=== PATIENT | female | born 1995 | race Caucasian/White ===

== ENCOUNTER 2018-02-11 12:01 | Day surgery (SDC) | payer MEDICAID ==
[~2018-02-11] VITALS: Ht 162.6 cm; Wt 62.6 kg
[~2018-02-11 12:01] MED LIST: ACHD5005 PO; AZIT-21 PO; BIRTH CONTROL PO; BUTA1CAP39 PO; CHOL4PAC19 PO; DCS100C PO; HYDR-3720 PO; IBP800T PO; LACTATED RINGERS 1,000 ML IV PRN; METR500T PO; MULT-241 PO; NAPR-243 PO; PEDI1TAB35 PO; PREN-115 PO; TRAM50TA2 PO; TRM50T PO
[2018-02-11 12:10] VITALS: BP 116/65
[2018-02-11] MEDS ORDERED: LACTATED RINGERS 1,000 ML IV PRN (12:24)
[2018-02-11] MEDS ORDERED: ONDANSETRON 4 MG/2 ML (SDV) Z0FRAN IV ONE (12:30)
[2018-02-11] MEDS ORDERED: SCOPOLAMINE 1.5 MG (TRANSDERM-SCOP) PATCH TOP ONE (12:30)
[2018-02-11] MEDS ORDERED: FAMOTIDINE 20MG/2ML IV (PEPCID) IV ONE (12:30)
[2018-02-11 12:41] LABS: BASOPHILS % (AUTO) 0 % (0-10); EOSINOPHILS # (AUTO) 0.1 10^3/uL (0.0-0.3); EOSINOPHILS % (AUTO) 1 % (0-10); HEMATOCRIT 38 % (35-52); HEMOGLOBIN 13.3 G/DL (11.5-16.0); LYMPHOCYTES # (AUTO) 1.7 X 10^3 (1.0-4.0); LYMPHOCYTES % (AUTO) 23 % (12-44); MEAN CORPUSCULAR HEMOGLOBIN 30 PG (25-34); MEAN CORPUSCULAR HGB CONC 36 G/DL (32-36); MEAN CORPUSCULAR VOLUME 85 FL (80-99); MEAN PLATELET VOLUME 10.1 FL (7.4-10.4); MONOCYTES # (AUTO) 0.7 X 10^3 (0.0-1.0); MONOCYTES % (AUTO) 9 % (0-12); NEUTROPHILS # (AUTO) 4.9 X 10^3 (1.8-7.8); NEUTROPHILS % (AUTO) 66 % (42-75); PLATELET COUNT 256 10^3/uL (130-400); RED BLOOD COUNT 4.39 10^6/uL (4.35-5.85); RED CELL DISTRIBUTION WIDTH 12.6 % (10.0-14.5); WHITE BLOOD COUNT 7.4 10^3/uL (4.3-11.0)
[2018-02-11] MEDS ORDERED: ceFAZolin 1 GM/NS 100 ML IVPB IV ONE ×2 (12:45)
[2018-02-11] MEDS ORDERED: LIDOCAINE PF 2% 5 ML (XYLOCAINE) VIAL ONE (13:19)
[2018-02-11] MEDS ORDERED: fentaNYL INJECTION 100 MCG/2 ML AMP ONE (13:19)
[2018-02-11] MEDS ORDERED: DEXAMETHASONE 10 MG/ML (DECADRON) 1 ML VIAL ONE (13:19)
[2018-02-11] MEDS ORDERED: proPOfol 200 MG/20 ML (DIPRIVAN) VIAL IV ONE (13:19)
[2018-02-11] MEDS ORDERED: SEVOFLURANE (ULTANE) 15 ML INHAL SOLN ONE ×2 (13:19→15:01)
[2018-02-11] MEDS ORDERED: ONDANSETRON 4 MG/2 ML (SDV) Z0FRAN ONE ×2 (13:19→15:26)
[2018-02-11] MEDS ORDERED: MIDAZOLAM 2 MG/2 ML (VERSED) VIAL ONE (13:19)
[2018-02-11] MEDS ORDERED: D5 LR IV SOLUTION 1,000 ML IV SCH (14:28)
--- NOTE | 2018-02-11 14:28 | Progress Note-Pre Operative ---
Pre-Operative Progress Note H&P Reviewed The H&P was reviewed, patient examined and no changes noted. Date Seen by Provider: Feb 11, 2018 Time Seen by Provider: 14:28 Date H&P Reviewed: Feb 11, 2018 Time H&P Reviewed: :28 Pre-Operative Diagnosis: MELISSA/incomplete AB/possible molar ANGIE BURROWS MD Feb 11, 2018 2:28 pm
[2018-02-11] MEDS ORDERED: KETOROLAC 30 MG/ML VIAL IVP ONE (14:30)
[2018-02-11] MEDS ORDERED: OXYC-465 PO (14:30)
[2018-02-11] MEDS ORDERED: PROMETHAZINE INJ 25 MG/ML (PHENERGAN) AMP IM ONE (14:30)
[2018-02-11] MEDS ORDERED: oxyCODONE/APAP 10/325MG (PERCOCET 10) TABLET PO PRN (14:30)
[2018-02-11] MEDS ORDERED: MEPERIDINE (DEMEROL) INJ 100 MG/ML IM ONE (14:30)
[2018-02-11] MEDS ORDERED: ONDANSETRON 4 MG/2 ML (SDV) Z0FRAN IVP PRN ×2 (14:30→15:15)
--- NOTE | 2018-02-11 14:32 | Discharge Instructions ---
Discharge Instructions Discharge Medications New, Converted or Re-Newed RX: RX on Chart Patient Instructions Patient Instructions: As directed Return to The Hospital For: As directed Activity & Diet Discharge Diet: No Restrictions Activity as Tolerated: No Orders-Post D/C & Referrals Return to clinic with me on Wednesday, February 14, 2018 at 930 a.m. for follow-up Return to clinic or to the emergency department properly for any signs symptoms and indications of excessive bleeding or of ectopic ANGIE BURROWS MD Feb 11, 2018 2:32 pm
[2018-02-11] MEDS ORDERED: morphine INJ 10 MG/ML 1ML (SYR OR VIAL) ONE (14:58)
[2018-02-11] MEDS ORDERED: morphine INJ 10 MG/ML 1ML (SYR OR VIAL) IVP PRN (15:15)
[2018-02-11] MEDS ORDERED: MEPERIDINE (DEMEROL) INJ 50 MG/ML IVP PRN (15:15)
[2018-02-11 16:00] VITALS: BP 118/64
[2018-02-11 16:01] VITALS: BP 118/64
[2018-02-11] MEDS ORDERED: oxyCODONE/APAP 10/325MG (PERCOCET 10) TABLET PO ONE (16:28)
[2018-02-11 16:30] VITALS: BP 125/70
[2018-02-11 17:00] VITALS: BP 111/69
--- NOTE | 2018-02-11 19:57 | Anesthesia-General Post-Op ---
General Patient Condition Mental Status/LOC: Same as Preop Cardiovascular: Satisfactory Nausea/Vomiting: Absent Respiratory: Satisfactory Pain: Controlled Complications: Absent Post Op Complications Complications None Follow Up Care/Instructions Patient Instructions None needed. Anesthesia/Patient Condition Patient Condition Patient is doing well, no complaints, stable vital signs, no apparent adverse anesthesia problems. No complications reported per nursing. ROBERTA ORLANDO CRNA Feb 11, 2018 19:57
--- NOTE | 2018-02-11 21:21 | OPERATIVE REPORT ---
DATE OF SERVICE: 02/11/2018 PREOPERATIVE DIAGNOSES: Incomplete AB/versus molar versus other. POSTOPERATIVE DIAGNOSES: Incomplete AB/versus molar versus other with pathology pending. OPERATIVE PROCEDURE: D and C. OPERATIVE DESCRIPTION: With the patient in supine position under satisfactory general anesthesia, she was repositioned in dorsal lithotomy position in the [facility] stirrups, then prepped and draped in the usual fashion for vaginal surgery. Weighted speculum placed in posterior fornix of vagina, cervix exposed and grasped with single-tooth tenaculum. The uterus was sounded to 11.5 cm uterine sound. The cervix and serially dilated with Theo dilators to a #20 Theo. The endometrial cavity was sharply curettaged with removal of small of tissue and then a #8 curved suction curette was introduced and a substantial aliquot of tissue was removed with vacuum curettaged. The endometrial cavity was sharply curettaged a final time and then vacuumed a final time to remove all blood clot and debris from the endometrial cavity. The tenaculum was now removed from the cervix. There was no bleeding from the puncture sites. There was minimal bleeding from the cervical os. Sponge and needle counts were correct on completion of the procedure. Estimated blood loss for procedure was minimal. The patient tolerated the procedure well and was uneventfully awakened from her general anesthesia and transferred to recovery in stable condition with plans for discharge home PAR. Job ID: [id number] DocumentID: [id number] Dictated Date: 02/11/2018 15:01:34 [employer] Date: 02/11/2018 21:20:59 Dictated By: ANGIE BURROWS MD
--- OUTSIDE RECORDS SUMMARY | 2018-02-13 07:36 | XMS REPORT | Continuity of Care Document ---
Author Author [facility] Address Unknown Phone Unavailable Allergies Active Description Code Type Severity Reaction Onset Reported/Identified Relationship to Patient Clinical Status Yes No Known Drug Allergies [id number] Drug Allergy Unknown N/A 02/22/2012 Medications There is no data. Problems Date Dx Coded Attending Type Code Diagnosis Diagnosed By 03/14/2009 WILBERT GREEN DO V03.89 NEED FOR PROPHYLACTIC VACCINATION AND INOCULATION AGAINST OTHER SPECIFIED SINGLE BACTERIAL DISEASE 03/14/2009 WILBERT GREEN DO V05.8 Need For Vaccination Human Papilloma Virus 03/14/2009 WILBERT GREEN DO V06.1 Vaccines Prophylactic Need Against DTP 03/14/2009 WILBERT GREEN DO V25.49 Gynecologic Service Prescrip Of Contracept Agent - Repeat Rx 03/14/2009 WILBERT GREEN DO V69.2 sexually active, frequently with new partners 03/14/2009 WILBERT GREEN DO V72.31 Pelvic Exam (Internal) 03/14/2009 WILBERT GREEN DO V72.41 Test Negative 03/14/2009 WILBERT GREEN DO V74.5 visit for: screening exam bact/spirochetal venereal disease 01/28/2010 WILBERT GREEN DO 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, CHICKENPOX 04/08/2012 WILBERT GREEN DO 461.9 SINUSITIS ACUTE 04/23/2013 MAKAYLA BENNETT DO Ot 640.03 THREATEN ABORT-ANTEPART 04/23/2013 MAKAYLA BENNETT DO Ot 649.53 SPOTTING COMP , ANTEPARTUM COND 04/30/2013 SHAWNA SHEA MD Ot 640.03 THREATEN ABORT-ANTEPART 04/30/2013 SHAWNA SHEA MD Ot V07.2 PROPHYLACT IMMUNOTHERAPY 08/17/2013 ANGIE BURROWS MD Ot 623.5 NONINFECT VAG LEUKORRHEA 08/17/2013 ANGIE BURROWS MD Ot 654.73 ABNORM VAGINA-ANTEPARTUM 08/17/2013 ANGIE BURROWS MD Ot V04.81 ND FOR PROPHYLACTIC VACCIN AND INOCULATI 10/06/2013 ANGIE BURROWS MD, Ot 644.03 THRT KAJAL LABOR-ANTEPART 12/03/2013 ANGIE BURROWS MD, Ot 644.13 THREAT LABOR NEC-ANTEPAR 12/13/2013 ANGIE BURROWS MD, Ot 657.01 POLYHYDRAMNIOS,DEL W OR W/O MENTN ANTEPA 12/13/2013 ANGIE BURROWS MD, Ot V06.1 [id number], COMBINED [ 12/13/2013 ANGIE BURROWS MD, Ot V27.0 DELIVER-SINGLE LIVEBORN 01/31/2014 FRANK NOYOLA, TIFFANIE Camarillo Ot 575.8 DIS OF GALLBLADDER NEC 05/16/2014 BRITTANY CORRAL FRAUD EXAMINER Ot 784.0 HEADACHE 07/04/2014 ANGIE BURROWS MD Ot 626.2 EXCESSIVE MENSTRUATION 09/17/2014 FRANK NOYOLA, TIFFANIE Camarillo Ot 787.91 DIARRHEA 09/17/2014 FRANK NOYOLA, TIFFANIE Camarillo Ot 789.00 ABDOMINAL PAIN, UNSPECIFIED SITE 12/27/2015 SABRINA MAKAYLA Stevo Ot O20.0 THREATENED 12/27/2015 SABRINA MAKAYLA Whiteside Ot Z3A.01 LESS THAN 8 WEEKS GESTATION OF 04/13/2016 ANGIE BURROWS MD Ot 591 HYDRONEPHROSIS 04/13/2016 ANGIE BURROWS MD Ot 789.01 ABDOMINAL PAIN, RIGHT UPPER QUADRANT 04/13/2016 TIFFANIE MARIE MD Ot 575.8 DIS OF GALLBLADDER NEC 04/13/2016 TIFFANIE MARIE MD Ot V72.63 PRE-PROCEDURAL LABORATORY EXAMINATION 04/13/2016 TIFFANIE MARIE MD Ot V74.8 SCREEN-BACTERIAL DIS NEC 04/13/2016 ANGIE BURROWS MD Ot 285.9 ANEMIA NOS 04/13/2016 ANGIE BURROWS MD Ot 626.2 EXCESSIVE MENSTRUATION 04/13/2016 ANGIE BURROWS MD Ot 626.8 MENSTRUAL DISORDER NEC 04/13/2016 ANGIE BURROWS MD Ot V72.63 PRE-PROCEDURAL LABORATORY EXAMINATION 04/13/2016 ANGIE BURROWS MD Ot V74.8 SCREEN-BACTERIAL DIS NEC 04/13/2016 FRANK NOYOLA, TIFFANIE Camarillo Ot V72.84 EXAM PRE-OPERATIVE NOS 04/13/2016 BRITTANY CORRAL FRAUD EXAMINER Ot R10.32 LEFT LOWER QUADRANT PAIN 04/13/2016 BRITTANY CORRAL FRAUD EXAMINER Ot R11.0 NAUSEA 09/29/2016 STORMY NOYOLA, ANGIE Bills Ot 591 HYDRONEPHROSIS 09/29/2016 ANGIE BURROWS MD Ot 789.01 ABDOMINAL PAIN, RIGHT UPPER QUADRANT 09/29/2016 FRANK NOYOLA, TIFFANIE Camarillo Ot 575.8 DIS OF GALLBLADDER NEC 09/29/2016 FRANK NOYOLA, TIFFANIE Camarillo Ot V72.63 PRE-PROCEDURAL LABORATORY EXAMINATION 09/29/2016 FRANK NOYOLA, TIFFANIE Camarillo Ot V74.8 SCREEN-BACTERIAL DIS NEC 09/29/2016 ANGIE BURROWS MD Ot 285.9 ANEMIA NOS 09/29/2016 ANGIE BURROWS MD Ot 626.2 EXCESSIVE MENSTRUATION 09/29/2016 ANGIE BURROWS MD Ot 626.8 MENSTRUAL DISORDER NEC 09/29/2016 ANGIE BURROWS MD Ot V72.63 PRE-PROCEDURAL LABORATORY EXAMINATION 09/29/2016 ANGIE BURROWS MD Ot V74.8 SCREEN-BACTERIAL DIS NEC 09/29/2016 FRANK NOYOLA, TIFFANIE Camarillo Ot V72.84 EXAM PRE-OPERATIVE NOS 09/29/2016 LIT, KRISHNA PARACH[employer] CROWN SEWER Ot K62.5 HEMORRHAGE OF ANUS AND RECTUM 09/29/2016 LIT, KRISHNA [employer]ACHUTE CROWN SEWER Ot R10.13 EPIGASTRIC PAIN 09/29/2016 LIT, KRISHNA [employer]ACH[employer] CROWN SEWER Ot R10.31 RIGHT LOWER QUADRANT PAIN 09/29/2016 LIT, KRISHNA [employer]ACH[employer] CROWN SEWER Ot R10.32 LEFT LOWER QUADRANT PAIN 09/30/2016 LIT, KRISHNA [employer]ACH[employer] CROWN SEWER Ot K62.5 HEMORRHAGE OF ANUS AND RECTUM 09/30/2016 LIT, KRISHNA [employer]ACH[employer] CROWN SEWER Ot R10.13 EPIGASTRIC PAIN 09/30/2016 LIT, KRISHNA [employer]ACH[employer] CROWN SEWER Ot R10.31 RIGHT LOWER QUADRANT PAIN 09/30/2016 KRISHNA MURRIETA [employer]ACH[employer] CROWN SEWER Ot R10.32 LEFT LOWER QUADRANT PAIN 02/10/2018 ANGIE BURROWS MD Ot 591 HYDRONEPHROSIS 02/10/2018 ANGIE BURROWS MD Ot 789.01 ABDOMINAL PAIN, RIGHT UPPER QUADRANT 02/10/2018 FRANK NOYOLA, TIFFANIE Camarillo Ot 575.8 DIS OF GALLBLADDER NEC 02/10/2018 TIFFANIE MARIE MD Ot V72.63 PRE-PROCEDURAL LABORATORY EXAMINATION 02/10/2018 TIFFANIE MARIE MD Ot V74.8 SCREEN-BACTERIAL DIS NEC 02/10/2018 ANGIE BURROWS MD Ot 285.9 ANEMIA NOS 02/10/2018 ANGIE BURROWS MD Ot 626.2 EXCESSIVE MENSTRUATION 02/10/2018 ANGIE BURROWS MD Ot 626.8 MENSTRUAL DISORDER NEC 02/10/2018 ANGIE BURROWS MD Ot V72.63 PRE-PROCEDURAL LABORATORY EXAMINATION 02/10/2018 ANGIE BURROWS MD Ot V74.8 SCREEN-BACTERIAL DIS NEC 02/10/2018 FRANK NOYOLA, TIFFANIE Camarillo Ot V72.84 EXAM PRE-OPERATIVE NOS 02/11/2018 ANGIE BURROWS MD Ot 591 HYDRONEPHROSIS 02/11/2018 ANGIE BURROWS MD Ot 789.01 ABDOMINAL PAIN, RIGHT UPPER QUADRANT 02/11/2018 TIFFANIE MARIE MD Ot 575.8 DIS OF GALLBLADDER NEC 02/11/2018 TIFFANIE MARIE MD Ot V72.63 PRE-PROCEDURAL LABORATORY EXAMINATION 02/11/2018 TIFFANIE MARIE MD Ot V74.8 SCREEN-BACTERIAL DIS NEC 02/11/2018 ANGIE BURROWS MD Ot 285.9 ANEMIA NOS 02/11/2018 ANGIE BURROWS MD Ot 626.2 EXCESSIVE MENSTRUATION 02/11/2018 ANGIE BURROWS MD Ot 626.8 MENSTRUAL DISORDER NEC 02/11/2018 ANGIE BURROWS MD Ot V72.63 PRE-PROCEDURAL LABORATORY EXAMINATION 02/11/2018 ANGIE BURROWS MD Ot V74.8 SCREEN-BACTERIAL DIS NEC 02/11/2018 TIFFANIE MARIE MD Ot V72.84 EXAM PRE-OPERATIVE NOS 02/11/2018 ANGIE BURROWS MD Ot 591 HYDRONEPHROSIS 02/11/2018 ANGIE BURROWS MD Ot 789.01 ABDOMINAL PAIN, RIGHT UPPER QUADRANT 02/11/2018 TIFFANIE MARIE MD Ot 575.8 DIS OF GALLBLADDER NEC 02/11/2018 TIFFANIE MARIE MD Ot V72.63 PRE-PROCEDURAL LABORATORY EXAMINATION 02/11/2018 TIFFANIE MARIE MD Ot V74.8 SCREEN-BACTERIAL DIS NEC 02/11/2018 ANGIE BURROWS MD Ot 285.9 ANEMIA NOS 02/11/2018 ANGIE BURROWS MD Ot 626.2 EXCESSIVE MENSTRUATION 02/11/2018 ANGIE BURROWS MD Ot 626.8 MENSTRUAL DISORDER NEC 02/11/2018 ANGIE BURROWS MD Ot V72.63 PRE-PROCEDURAL LABORATORY EXAMINATION 02/11/2018 ANGIE BURROWS MD Ot V74.8 SCREEN-BACTERIAL DIS NEC 02/11/2018 TIFFANIE MARIE MD Ot V72.84 EXAM PRE-OPERATIVE NOS Procedures Code Description Performed By Performed On 72.9 INSTRUMENT DELIVERY NOS 12/11/2013 73.4 MEDICAL INDUCTION LABOR 12/11/2013 74.1 LOW CERVICAL 12/11/2013 Results Test Result Range Complete blood count (CBC) with automated white blood cell (WBC) differential - 09/29/16 18:38 Blood leukocytes automated count (number/volume) 8.2 10*3/uL 4.3-11.0 Blood erythrocytes automated count (number/volume) 4.58 10*6/uL 4.35-5.85 Venous blood hemoglobin measurement (mass/volume) 13.9 g/dL 11.5-16.0 Blood hematocrit (volume fraction) 39 % 35-52 Automated erythrocyte mean corpuscular volume 85 [foz_us] 80-99 Automated erythrocyte mean corpuscular hemoglobin (mass per erythrocyte) 30 pg 25-34 Automated erythrocyte mean corpuscular hemoglobin concentration measurement ( mass/volume) 36 g/dL 32-36 Automated erythrocyte distribution width ratio 12.0 % 10.0-14.5 Automated blood platelet count (count/volume) 281 10*3/uL 130-400 Automated blood platelet mean volume measurement 10.3 [foz_us] 7.4-10.4 Automated blood neutrophils/100 leukocytes 58 % 42-75 Automated blood lymphocytes/100 leukocytes 29 % 12-44 Blood monocytes/100 leukocytes 11 % 0-12 Automated blood eosinophils/100 leukocytes 2 % 0-10 Automated blood basophils/100 leukocytes 1 % 0-10 Blood neutrophils automated count (number/volume) 4.8 10*3 1.8-7.8 Blood lymphocytes automated count (number/volume) 2.4 10*3 1.0-4.0 Blood monocytes automated count (number/volume) 0.9 10*3 0.0-1.0 Automated eosinophil count 0.2 10*3/uL 0.0-0.3 Automated blood basophil count (count/volume) 0.0 10*3/uL 0.0-0.1 Comprehensive metabolic panel - 09/29/16 18:38 Serum or plasma sodium measurement (moles/volume) 141 mmol/L 135-145 Serum or plasma potassium measurement (moles/volume) 3.7 mmol/L 3.6-5.0 Serum or plasma chloride measurement (moles/volume) 105 mmol/L 98-107 Carbon dioxide 28 mmol/L 21-32 Serum or plasma anion gap determination (moles/volume) 8 mmol/L 5-14 Serum or plasma urea nitrogen measurement (mass/volume) 14 mg/dL 7-18 Serum or plasma creatinine measurement (mass/volume) 0.78 mg/dL 0.60-1.30 Serum or plasma urea nitrogen/creatinine mass ratio 18 NRG Serum or plasma creatinine measurement with calculation of estimated glomerular filtration rate > NRG Serum or plasma glucose measurement (mass/volume) 99 mg/dL 70-105 Serum or plasma calcium measurement (mass/volume) 9.7 mg/dL 8.5-10.1 Serum or plasma total bilirubin measurement (mass/volume) 0.6 mg/dL 0.1-1.0 Serum or plasma alkaline phosphatase measurement (enzymatic activity/volume) 68 U/L 40-136 Serum or plasma aspartate aminotransferase measurement (enzymatic activity/ volume) 19 U/L 5-34 Serum or plasma alanine aminotransferase measurement (enzymatic activity/volume ) 6 U/L 0-55 Serum or plasma protein measurement (mass/volume) 7.2 g/dL 6.4-8.2 Serum or plasma albumin measurement (mass/volume) 4.5 g/dL 3.2-4.5 TEST, SERUM (QUAL) - 08/17/17 09:28 hCG,Beta Subunit,Qual,Serum Positive mIU/mL Negative <6 hCG,Beta Subunit,Qual,Serum - 08/17/17 09:28 hCG,Beta Subunit,Qual,Serum Positive mIU/mL Negative <6 Encounters ACCT No. Visit Date/Time Discharge Status Pt. Type Provider Facility Loc./Unit Complaint [id number] 08/01/2014 12:37:00 08/01/2014 23:59:59 CLS Outpatient WILBERT GREEN DO 09/17/2014 08:27:14 ACT Document Registration [id number] 08/17/2017 09:20:00 08/17/2017 23:59:59 CLS Outpatient PRETTY WHITT APRN [facility] [id number] 08/17/2017 09:20:00 Document Registration [id number] 08/18/2017 10:09:00 Document Registration [id number] 02/11/2018 12:01:00 02/11/2018 17:25:00 DIS Outpatient STORMY NOYLOA, ANGIE Bills [facility] MOLAR [id number] 09/29/2016 17:33:00 09/29/2016 19:30:00 DIS Emergency KRISHNA MURRIETA Via [facility] ER ANAL BLEEDING/PASSING CLOTS [id number] 04/13/2016 10:14:00 04/13/2016 13:04:00 DIS Emergency BRITTANY CORRAL APRN [facility] ER LEFT SIDE PAIN [id number] 12/27/2015 17:37:00 12/27/2015 19:26:00 DIS Emergency MAKAYLA BENNETT DO [facility] ER VAGINAL BLEEDING [id number] 09/17/2014 08:26:00 09/17/2014 12:00:00 DIS Outpatient TIFFANIE MARIE MD [facility] BLOODY DIARRHEA [id number] 09/13/2014 07:59:00 09/13/2014 23:59:59 CLS Outpatient TIFFANIE MARIE MD Via [facility] PREOP BLOODY DIARRHEA [id number] 07/04/2014 11:35:00 07/04/2014 15:40:00 DIS Outpatient ANGIE BURROWS MD [facility] SDC DUB [id number] 06/29/2014 11:51:00 06/29/2014 23:59:59 CLS Outpatient ANGIE BURROWS MD [facility] PREOP DUB [id number] 05/16/2014 17:55:00 05/16/2014 19:14:00 DIS Emergency BRITTANY CORRAL APRN [facility] ER HEADACHE [id number] 01/31/2014 06:00:00 01/31/2014 12:30:00 DIS [facility] [id number] 01/25/2014 11:53:00 01/25/2014 23:59:59 CLS Outpatient TIFFANIE MARIE MD [facility] PREOP DYSKNESIA [id number] 01/11/2014 11:38:00 01/11/2014 23:59:59 CLS Outpatient ANGIE BURROWS MD [facility] RAD RUQ PAIN [id number] 12/11/2013 06:56:00 12/13/2013 13:30:00 DIS Inpatient ANGIE BURROWS MD [facility] WS INDUCTION [id number] 12/02/2013 19:50:00 12/03/2013 09:40:00 DIS Inpatient ANGIE BURROWS MD [facility] WS ABD PAIN, CTXS [id number] 10/09/2013 08:14:00 10/09/2013 23:59:59 CLS Outpatient ANGIE BURROWS MD [facility] RAD UPPER ABD PAIN [id number] 10/06/2013 16:04:00 10/06/2013 17:03:00 DIS Outpatient ANGIE BURROWS MD [facility] WSo VAG BLEED [id number] 08/17/2013 01:17:00 08/17/2013 01:50:00 DIS Out[facility]ORMY [facility]OLA[facility] [id number] 04/30/2013 19:53:00 04/30/2013 21:23:00 DIS Emergency MONSE NOYOLA, SHAWNA Breaux Via [facility] ER >5 WKS; BLEEDING [id number] 04/23/2013 09:43:00 04/23/2013 12:03:00 DIS Emergency MAKAYLA BENNETT DO Via [facility] ER SPOTTING; OB<20 WKS
--- NOTE | 2018-02-15 14:51 | Physician Query-General Query ---
Physician Query-General Query to Physician: Incomplete AB/versus molar versus other with pathology pending. Please give final diagnosis after review of pathology report thank you PHYSICIAN RESPONSE: Based on the clinical findings in the record, please respond to the query above on this document as an addendum. Possible, probable, or questionable diagnosis can be coded for INPATIENTS ONLY. Physician Response: Physician Response Missed AB If you have questions please contact: Bar Gauger And Lubricator Tender: Ext: Thank you for your time and cooperation. Clinical Resident Care Associate/Bar Gauger And Lubricator Tender This is a permanent part of the medical record ADDIE BELTRÁN Feb 15, 2018 14:51 ANGIE BURROWS MD Feb 18, 2018 12:01
== END 2018-02-11 17:25 | disposition home or self-care (01) ==
LOC: SDC 12:01
PROVIDERS: ATTEND Obstetrics & Gynecology
DX: O02.1 Missed abortion (principal)
CPT/HCPCS: 36415; 84702; 85025; 87081; 88305

== ENCOUNTER 2018-02-13 20:16 | Emergency (ER) | payer MEDICAID ==
[~2018-02-13] VITALS: Ht 162.6 cm; Wt 62.6 kg
[~2018-02-13 20:16] MED LIST changes: -LACTATED RINGERS 1,000 ML IV PRN; +OXYC-465 PO
--- OUTSIDE RECORDS SUMMARY | 2018-02-13 20:21 | XMS REPORT | Continuity of Care Document ---
Author Author [facility] Address Unknown Phone Unavailable Allergies Active Description Code Type Severity Reaction Onset Reported/Identified Relationship to Patient Clinical Status Yes No Known Drug Allergies [id number] Drug Allergy Unknown N/A 02/22/2012 Medications There [...] ANTEPA 12/13/2013 ANGIE BURROWS MD, Ot V06.1 [id number], COMBINED [ 12/13/2013 ANGIE BURROWS MD, Ot V27.0 DELIVER-SINGLE LIVEBORN 01/31/2014 FRANK NOYOLA, TIFFANIE Camarillo Ot 575.8 DIS OF GALLBLADDER NEC 05/16/2014 BRITTANY CORRAL BUSINESS ANALYST INTERN Ot 784.0 HEADACHE 07/04/2014 ANGIE BURROWS MD [...] V72.84 EXAM PRE-OPERATIVE NOS 04/13/2016 BRITTANY CORRAL BUSINESS ANALYST INTERN Ot R10.32 LEFT LOWER QUADRANT PAIN 04/13/2016 BRITTANY CORRAL BUSINESS ANALYST INTERN Ot R11.0 NAUSEA 09/29/2016 STORMY NOYOLA, ANGIE [...] V72.84 EXAM PRE-OPERATIVE NOS 09/29/2016 LIT, KRISHNA HEATING UNIT INSTALLER Ot K62.5 HEMORRHAGE OF ANUS AND RECTUM 09/29/2016 LIT, KRISHNA HEATING UNIT INSTALLER Ot R10.13 EPIGASTRIC PAIN 09/29/2016 LIT, KRISHNA HEATING UNIT INSTALLER Ot R10.31 RIGHT LOWER QUADRANT PAIN 09/29/2016 LIT, KRISHNA HEATING UNIT INSTALLER Ot R10.32 LEFT LOWER QUADRANT PAIN 09/30/2016 LIT, KRISHNA HEATING UNIT INSTALLER Ot K62.5 HEMORRHAGE OF ANUS AND RECTUM 09/30/2016 LIT, KRISHNA HEATING UNIT INSTALLER Ot R10.13 EPIGASTRIC PAIN 09/30/2016 LIT, KRISHNA HEATING UNIT INSTALLER Ot R10.31 RIGHT LOWER QUADRANT PAIN 09/30/2016 KRISHNA MURRIETA HEATING UNIT INSTALLER Ot R10.32 LEFT LOWER QUADRANT PAIN 02/10/2018 [...] Status Pt. Type Provider Facility Loc./Unit Complaint [id number] 08/01/2014 12:37:00 08/01/2014 23:59:59 CLS Outpatient WILBERT GREEN DO 09/17/2014 08:27:14 ACT Document Registration [id number] 08/17/2017 09:20:00 08/17/2017 23:59:59 CLS Outpatient PRETTY WHITT APRN [facility] [id number] 08/17/2017 09:20:00 Document Registration [id number] 08/18/2017 10:09:00 Document Registration [id number] 02/11/2018 12:01:00 02/11/2018 17:25:00 DIS Outpatient STORMY NOYOLA, ANGIE Bills [facility] MOLAR [id number] 09/29/2016 17:33:00 09/29/2016 19:30:00 DIS Emergency KRISHNA MURRIETA [facility] ER ANAL BLEEDING/PASSING CLOTS [id number] 04/13/2016 10:14:00 04/13/2016 13:04:00 DIS Emergency BRITTANY CORRAL APRN [facility] ER LEFT SIDE PAIN [id number] 12/27/2015 17:37:00 12/27/2015 19:26:00 DIS Emergency MAKAYLA BENNETT DO [facility] ER VAGINAL BLEEDING [id number] 09/17/2014 08:26:00 09/17/2014 12:00:00 DIS Outpatient TIFFANIE MARIE MD [facility] BLOODY DIARRHEA [id number] 09/13/2014 07:59:00 09/13/2014 23:59:59 CLS Outpatient TIFFANIE MARIE MD [facility] PREOP BLOODY DIARRHEA [id number] 07/04/2014 11:35:00 07/04/2014 15:40:00 DIS Outpatient ANGIE BURROWS MD [facility] SDC DUB [id number] 06/29/2014 11:51:00 06/29/2014 23:59:59 CLS Outpatient ANGIE BURROWS MD [facility] PREOP DUB [id number] 05/16/2014 17:55:00 05/16/2014 19:14:00 DIS Emergency BRITTANY CORRAL APRN [facility] ER HEADACHE [id number] 01/31/2014 06:00:00 01/31/2014 12:30:00 DIS [facility] [id number] 01/25/2014 11:53:00 01/25/2014 23:59:59 CLS Outpatient TIFFANIE MARIE MD [facility] PREOP DYSKNESIA [id number] 01/11/2014 11:38:00 01/11/2014 23:59:59 CLS Outpatient ANGIE BURROWS MD [facility] RAD RUQ PAIN [id number] 12/11/2013 06:56:00 12/13/2013 13:30:00 DIS Inpatient ANGIE BURROWS MD [facility] WS INDUCTION [id number] 12/02/2013 19:50:00 12/03/2013 09:40:00 DIS Inpatient ANGIE BURROWS MD [facility] WS ABD PAIN, CTXS [id number] 10/09/2013 08:14:00 10/09/2013 23:59:59 CLS Outpatient ANGIE BURROWS MD [facility] RAD UPPER ABD PAIN [id number] 10/06/2013 16:04:00 10/06/2013 17:03:00 DIS Outpatient ANGIE BURROWS MD [facility] WSo VAG BLEED [id number] 08/17/2013 01:17:00 08/17/2013 01:50:00 DIS Outpatient STORMY NOYOLA, [facility] LOST MUCUS PLUG [id number] 04/30/2013 19:53:00 04/30/2013 21:23:00 DIS Emergency MONSE NOYOLA, SHAWNA Breaux [facility] ER >5 WKS; BLEEDING [id number] 04/23/2013 09:43:00 04/23/2013 12:03:00 DIS Emergency MAKAYLA BENNETT DO [facility] ER SPOTTING; OB<20 WKS
[2018-02-13] MEDS ORDERED: KETOROLAC 30 MG/ML VIAL IM ONE (20:30)
--- NOTE | 2018-02-13 20:37 | ED GU-Female ---
General Stated Complaint: DNC DONE WEDNESDAY,ABD PAIN Source: patient Exam Limitations: no limitations History of Present Illness Date Seen by Provider: Feb 13, 2018 Time Seen by Provider: 20:31 Initial Comments The patient presents to the ER as a with 4 miscarriages. She had an ultrasound last week demonstrating a amniotic sac in the uterine cavity at approximately 6 weeks but there is no yolk sac or pole or heart tones found. She was offered a D&C and had this done Wednesday, [address] Spain. Patient had a little pain afterwards but not bad enough to use any of her pain medicines. She had nausea and vomiting one time Wednesday and none since. She's had no fevers or chills. Today however she started having progressively worsening pain so she took one of her pain pills but that didn't help so she called the labor floor and they recommend that she get some rest so she took a nap. When she woke up she was still having significant pain. She has not had any bleeding or spotting since the D&C however after she woke up she did pass a modest sized blood clot and no spotting or bleeding since. The patient is not having a cough, shortness of breath, fever, chills, nausea or vomiting presently. Allergies and Home Medications Allergies Coded Allergies: No Known Drug Allergies (Unverified , 02/22/12) Home Medications Oxycodone HCl/Acetaminophen 1 Each Tablet, 1-2 TAB PO Q4H PRN for PAIN Prescribed by: ANGIE HILL on 02/11/18 1430 Patient Home Medication List Home Medication List Reviewed: Yes Review of Systems Constitutional: No chills, No diaphoresis EENTM: No hearing loss, No ear pain Respiratory: No cough, No hemoptysis, No orthopnea, No phlegm, No short of breath Cardiovascular: No chest pain, No edema, No Hx of Intervention Gastrointestinal: abdominal pain (right lower quadrant); No constipation (last bowel movement was yesterday, normal, formed), No diarrhea, No nausea, No vomiting Genitourinary: denies burning, denies discharge, denies dysuria : No Musculoskeletal: No back pain, No joint pain Skin: No pruritus, No rash Psychiatric/Neurological: Denies Headache, Denies Numbness, Denies Paresthesia Past Antciij-Vzthqn-Nonbep Hx Patient Social History Recent Hopitalizations: No Immunizations Up To Date Date of Influenza Vaccine: Aug 01, 2014 Seasonal Allergies Seasonal Allergies: No Past Medical History Section, Gallbladder Reproductive Disorders: Yes (DUB) Female Reproductive Disorders: Menstrual Problems Sexually Transmitted Disease: Yes Hiatal Hernia Adverse Reaction/Blood Tranf: No Physical Exam Vital Signs Vital Signs - First Documented 02/13/18 20:21 Temp 97.6 Pulse 96 Resp 16 B/P (MAP) 129/80 (96) Pulse Ox 100 O2 Delivery Room Air Capillary Refill : General Appearance: WD/WN, no apparent distress HEENT: PERRL/EOMI, normal ENT inspection, TMs normal, pharynx normal Neck: non-tender, full range of motion, supple, normal inspection Cardiovascular: normal peripheral pulses, regular rate, rhythm, no edema Respiratory: chest non-tender, lungs clear, normal breath sounds, no respiratory distress Gastrointestinal: normal bowel sounds, soft, no organomegaly; No rebound; tenderness (mid epigastric tenderness as well as right lower quadrant tenderness not over McBurney's point.) Genital/Rectal: normal genital exam; No tenderness; other (thick brown discharge) Back: normal inspection, no vertebral tenderness, CVA tenderness (R) Extremities: normal range of motion, non-tender, normal inspection Progress/Results/Core Measures Suspected Sepsis SIRS Temperature: Pulse: Respiratory Rate: Laboratory Tests 02/13/18 20:30: White Blood Count 8.5 Blood Pressure / Mean: Laboratory Tests 02/13/18 20:30: Creatinine 0.72, INR Comment 0.9, Platelet Count 284, Total Bilirubin 0.4 Results/Orders Lab Results Laboratory Tests Test 02/13/18 20:30 02/13/18 20:35 Range/Units White Blood Count 8.5 4.3-11.0 10^3/uL Red Blood Count 4.43 4.35-5.85 10^6/uL Hemoglobin 13.6 11.5-16.0 G/DL Hematocrit 39 35-52 % Mean Corpuscular Volume 89 80-99 FL Mean Corpuscular Hemoglobin 31 25-34 PG Mean Corpuscular Hemoglobin Concent 35 32-36 G/DL Red Cell Distribution Width 12.8 10.0-14.5 % Platelet Count 284 130-400 10^3/uL Mean Platelet Volume 10.3 7.4-10.4 FL Neutrophils (%) (Auto) 48 42-75 % Lymphocytes (%) (Auto) 42 12-44 % Monocytes (%) (Auto) 8 0-12 % Eosinophils (%) (Auto) 1 0-10 % Basophils (%) (Auto) 0 0-10 % Neutrophils # (Auto) 4.1 1.8-7.8 X 10^3 Lymphocytes # (Auto) 3.5 1.0-4.0 X 10^3 Monocytes # (Auto) 0.7 0.0-1.0 X 10^3 Eosinophils # (Auto) 0.1 0.0-0.3 10^3/uL Basophils # (Auto) 0.0 0.0-0.1 10^3/uL Prothrombin Time 12.3 12.2-14.7 SEC INR Comment 0.9 0.8-1.4 Activated Partial Thromboplast Time 30 24-35 SEC Sodium Level 141 135-145 MMOL/L Potassium Level 3.7 3.6-5.0 MMOL/L Chloride Level 106 98-107 MMOL/L Carbon Dioxide Level 25 21-32 MMOL/L Anion Gap 10 5-14 MMOL/L Blood Urea Nitrogen 14 7-18 MG/DL Creatinine 0.72 0.60-1.30 MG/DL Estimat Glomerular Filtration Rate > 60 BUN/Creatinine Ratio 19 Glucose Level 84 70-105 MG/DL Calcium Level 9.3 8.5-10.1 MG/DL Magnesium Level 2.2 1.8-2.4 MG/DL Total Bilirubin 0.4 0.1-1.0 MG/DL Aspartate Amino Transf (AST/SGOT) 73 H 5-34 U/L Alanine Aminotransferase (ALT/SGPT) 112 H 0-55 U/L Alkaline Phosphatase 97 40-136 U/L C-Reactive Protein High Sensitivity 0.03 0.00-0.50 MG/DL Total Protein 7.1 6.4-8.2 GM/DL Albumin 4.2 3.2-4.5 GM/DL Human Chorionic Gonadotropin, Quant 47 H <5 MIU/ML Serum Test, Qualitative POSITIVE NEGATIVE Urine Color YELLOW Urine Clarity SLIGHTLY CLOUDY Urine pH 5 5-9 Urine Specific [place] 1.020 1.016-1.022 Urine Protein NEGATIVE NEGATIVE Urine Glucose (UA) NEGATIVE NEGATIVE Urine Ketones NEGATIVE NEGATIVE Urine Nitrite NEGATIVE NEGATIVE Urine Bilirubin NEGATIVE NEGATIVE Urine Urobilinogen NORMAL NORMAL MG/DL Urine Leukocyte Esterase 1+ H NEGATIVE Urine RBC (Auto) 3+ H NEGATIVE Urine RBC NONE /HPF Urine WBC 0-2 /HPF Urine Squamous Epithelial Cells 25-50 H /HPF Urine Crystals NONE /LPF Urine Bacteria TRACE /HPF Urine Casts NONE /LPF Urine Mucus NEGATIVE /LPF Urine Culture Indicated NO Urine Opiates Screen NEGATIVE NEGATIVE Urine Oxycodone Screen NEGATIVE NEGATIVE Urine Methadone Screen NEGATIVE NEGATIVE Urine Propoxyphene Screen NEGATIVE NEGATIVE Urine Barbiturates Screen NEGATIVE NEGATIVE Ur Tricyclic Antidepressants Screen NEGATIVE NEGATIVE Urine Phencyclidine Screen NEGATIVE NEGATIVE Urine Amphetamines Screen NEGATIVE NEGATIVE Urine Methamphetamines Screen NEGATIVE NEGATIVE Urine Benzodiazepines Screen NEGATIVE NEGATIVE Urine Cocaine Screen NEGATIVE NEGATIVE Urine Cannabinoids Screen NEGATIVE NEGATIVE My Orders Orders - MIKE VELÁZQUEZ Cbc With Automated Diff (02/13/18 20:27) Comprehensive Metabolic Panel (02/13/18 20:27) Hs C Reactive Protein (02/13/18 20:27) Drug Screen Stat (Urine) (02/13/18 20:27) Hcg,Qualitative Serum (02/13/18 20:27) Magnesium (02/13/18 20:27) Protime With Inr (02/13/18 20:27) Partial Thromboplastin Time (02/13/18 20:27) Ua Culture If Indicated (02/13/18 20:27) Ketorolac Injection (Toradol Injection) (02/13/18 20:30) Hcg,Quantitative (02/13/18 20:38) Wet Prep (02/13/18 20:57) Neis Elias Dna Urine Test (02/13/18 21:46) Chlamydia Dna (02/13/18 21:46) Ceftriaxone Injection (Rocephin Injectio (02/13/18 22:00) Lidocaine 1% Inj 50 Ml (Xylocaine 1% Inj (02/13/18 22:00) Azithromycin Tablet (Zithromax Tablet) (02/14/18 09:00) Azithromycin Tablet (Zithromax Tablet) (02/13/18 21:50) Medications Given in ED Current Medications Medications Dose Ordered Sig/Jaclyn Route Start Time Stop Time Status Last Admin Dose Admin Ceftriaxone Sodium 250 mg ONCE ONCE IM 02/13/18 22:00 02/13/18 22:01 02/13/18 21:57 250 MG Ketorolac Tromethamine 15 mg ONCE ONCE IM 02/13/18 20:30 02/13/18 20:31 DC 02/13/18 20:59 15 MG Lidocaine HCl 0.9 ml ONCE ONCE IJ 02/13/18 22:00 02/13/18 22:01 02/13/18 21:58 0.9 ML Vital Signs/I&O 02/13/18 02/13/18 20:21 20:59 Temp 97.6 97.6 Pulse 96 Resp 16 B/P (MAP) 129/80 (96) Pulse Ox 100 O2 Delivery Room Air Capillary Refill : Progress Note #1: Time: 20:35 Progress Note Plan to do speculum exam looking for any retained tissues however after D&C this is fairly unlikely. She's having no fevers chills so endometritis is less likely however we'll check some blood work and if there is any evidence of infection or suspicion we will start her on antibiotics. We'll check a urinalysis. Discharge is thick, brown tinge which could be from small amounts of blood or possible BV. Wet prep obtained. Progress Note #2: Time: 22:01 Progress Note Wet prep doesn't show any Trichomonas, clue cells or yeast cells. The hCG is going down to 47 from 300 something. Tubal is much less likely. Her pain is resolved with the ketorolac. I have discussed this case with her OB provider Dr. Spain and he suggested that if she still having discomfort we might get the ultrasound to make sure there is no free fluid or anything else to worry about. The patient is feeling better and would like to just go home and follow up with the OB tomorrow at the scheduled appointment where they can do all sound if she still having pain. We have suggested a Profen and repetitive her resting little dose of the Rocephin and azithromycin just cover and let her follow-up with her OB per her wishes. Consults Consults : Consulting Physician: ANGIE SPAIN MD Consults Notes Discussed case lab and findings and he reports that there was no seen on the ultrasound just some debris in the uterus. He says the pathology for the D&C from Wednesday is not back yet. He would suggest that she is having significant pain we might consider an ultrasound of her pelvis. Departure Impression Primary Impression: Abdominal pain Qualified Codes: R10.31 - Right lower quadrant pain Additional Impression: History of D&C Disposition: 01 HOME, SELF-CARE Condition: Stable Departure-Patient Inst. Decision time for Depature: 22:04 Referrals: HUEY RANKIN DO (PCP) Primary Care Physician Patient Instructions: Dilation and Curettage (DC) Add. Discharge Instructions: Please keep your scheduled appointment tomorrow with Dr. Spain. If you begin to have fever or worsening pain return to the ER. Copy Copies To 1: ANGIE SPAIN MD, TITUS J Feb 13, 2018 20:37
[2018-02-13 20:45] LABS: BILIRUBIN,URINE NEGATIVE (NEGATIVE); CLARITY,URINE SLIGHTLY CLOUDY; COLOR,URINE YELLOW; GLUCOSE, URINE (UA) NEGATIVE (NEGATIVE); KETONES,URINE NEGATIVE (NEGATIVE); LEUKOCYTE ESTERASE ,URINE 1+ (NEGATIVE); NITRITE,URINE NEGATIVE (NEGATIVE); PH,URINE 5 (5-9); PROTEIN,URINE NEGATIVE (NEGATIVE); UROBILINOGEN,URINE NORMAL (NORMAL)
[2018-02-13 20:46] LABS: BASOPHILS % (AUTO) 0 % (0-10); EOSINOPHILS # (AUTO) 0.1 10^3/uL (0.0-0.3); EOSINOPHILS % (AUTO) 1 % (0-10); HEMATOCRIT 39 % (35-52); HEMOGLOBIN 13.6 G/DL (11.5-16.0); LYMPHOCYTES # (AUTO) 3.5 X 10^3 (1.0-4.0); LYMPHOCYTES % (AUTO) 42 % (12-44); MEAN CORPUSCULAR HEMOGLOBIN 31 PG (25-34); MEAN CORPUSCULAR HGB CONC 35 G/DL (32-36); MEAN CORPUSCULAR VOLUME 89 FL (80-99); MEAN PLATELET VOLUME 10.3 FL (7.4-10.4); MONOCYTES # (AUTO) 0.7 X 10^3 (0.0-1.0); MONOCYTES % (AUTO) 8 % (0-12); NEUTROPHILS # (AUTO) 4.1 X 10^3 (1.8-7.8); NEUTROPHILS % (AUTO) 48 % (42-75); PLATELET COUNT 284 10^3/uL (130-400); RED BLOOD COUNT 4.43 10^6/uL (4.35-5.85); RED CELL DISTRIBUTION WIDTH 12.8 % (10.0-14.5); WHITE BLOOD COUNT 8.5 10^3/uL (4.3-11.0)
[2018-02-13 21:00] LABS: AMPHETAMINE SCREEN, URINE NEGATIVE (NEGATIVE); BARBITURATE SCREEN URINE NEGATIVE (NEGATIVE); BENZODIAZEPINES SCREEN URINE NEGATIVE (NEGATIVE); CANNABINOID SCREEN, URINE NEGATIVE (NEGATIVE); COCAINE SCREEN URINE NEGATIVE (NEGATIVE); METHADONE STAT NEGATIVE (NEGATIVE); METHAMPHETAMINE SCREEN URINE S NEGATIVE (NEGATIVE); OPIATE SCREEN URINE NEGATIVE (NEGATIVE); OXYCODONE STAT NEGATIVE (NEGATIVE); PROPOXYPHENE STAT NEGATIVE (NEGATIVE); TRICYCLIC ANTIDEPRESSANTS SCRE NEGATIVE (NEGATIVE)
[2018-02-13 21:00] LABS: INR 0.9 (0.8-1.4); PROTHROMBIN TIME PATIENT 12.3 SEC (12.2-14.7)
[2018-02-13 21:05] LABS: ALANINE AMINOTRANSFERASE 112 U/L (0-55); ALBUMIN 4.2 GM/DL (3.2-4.5); ALKALINE PHOSPHATASE 97 U/L (40-136); BILIRUBIN,TOTAL 0.4 MG/DL (0.1-1.0); BUN/CREATININE RATIO 19; CALCIUM 9.3 MG/DL (8.5-10.1); CARBON DIOXIDE 25 MMOL/L (21-32); CHLORIDE 106 MMOL/L (98-107); CREATININE SERUM 0.72 MG/DL (0.60-1.30); GFR ESTIMATED > 60; GLUCOSE 84 MG/DL (70-105); MAGNESIUM 2.2 MG/DL (1.8-2.4); POTASSIUM 3.7 MMOL/L (3.6-5.0); SODIUM 141 MMOL/L (135-145); TOTAL PROTEIN 7.1 GM/DL (6.4-8.2)
[2018-02-13 21:17] LABS: BACTERIA,URINE TRACE /HPF; SQUAMOUS EPITHELIAL CELL,UR 25-50 /HPF; WBC,URINE 0-2 /HPF
[2018-02-13] MEDS ORDERED: AZITHROMYCIN 250 MG TAB (ZITHROMAX) PO ONE (21:50)
[2018-02-13] MEDS ORDERED: cefTRIAXone 250 MG (ROCEPHIN) VIAL IM ONE (22:00)
[2018-02-13] MEDS ORDERED: LIDOCAINE 1% INJ 50 ML (XYLOCAINE) VIAL IJ ONE (22:00)
[2018-02-13 22:10] VITALS: BP 129/78
[2018-02-14] MEDS ORDERED: AZITHROMYCIN 250 MG TAB (ZITHROMAX) PO SCH (09:00)
== END 2018-02-13 22:10 | disposition home or self-care (01) ==
LOC: EDUNIT# 20:16 → ER 20:18
DX: G89.18 Other acute postprocedural pain (principal); R10.31 Right lower quadrant pain; R10.13 Epigastric pain; Z87.59 Personal history of other complications of pregnancy, childbirth and the puerperium; Z87.19 Personal history of other diseases of the digestive system; Z98.890 Other specified postprocedural states
CPT/HCPCS: 36415; 80053; 80306; 81000; 83735; 84702; 84703; 85025; 85610; 85730; 86141; 87210; 87491; 87591; 96372; 99284